=== PATIENT | male | born 1945 | race Caucasian/White ===

== ENCOUNTER 2021-03-15 03:24 | Inpatient (IN) | payer OTHER ==
[~2021-03-15] VITALS: Ht 170.2 cm; Wt 73.2 kg
--- NOTE | 2021-03-15 03:28 | NUR ---
PT BIB RA 90 FROM [facility] FOR HYPOGLYCEMIA, GIVEN GLUCAGONE ON SNF. A/O X3, NO SOB OR LABORED BREATHING, AFEBRILE. CLEAR SPEECH, COMPLETE SENTENCES.
--- NOTE | 2021-03-15 03:32 | NUR ---
DR. DAVEY AT BEDSIDE, MSE IN PROGRESS.
--- NOTE | 2021-03-15 03:33 | NUR ---
GLUCOSE 138.
--- NOTE | 2021-03-15 04:01 | NUR ---
XRAY AT BEDSIDE.
[2021-03-15 04:44] LABS: CARBON DIOXIDE 26 mmol/L (21-32); CHLORIDE 96 mmol/L (98-107); CREATININE 6.4 mg/dL (0.6-1.3); GLUCOSE 199 mg/dL (74-106); POTASSIUM 4.4 mmol/L (3.5-5.1); UREA NITROGEN, BLOOD 67 mg/dL (7-18)
[2021-03-15 04:48] LABS: HEMATOCRIT 37.1 % (36.7-47.1); MEAN CORPUSCULAR HEMOGLOBIN 31.7 uug (23.8-33.4); MEAN CORPUSCULAR VOLUME 95.7 fL (73.0-96.2); PLATELET COUNT (AUTO) 127 K/uL (152-348)
[2021-03-15] MEDS ORDERED: CHLO473M3 PO (04:48)
[2021-03-15] MEDS ORDERED: CLOP75TA33 PO (04:48)
[2021-03-15] MEDS ORDERED: ISOS20TA8 PO (04:48)
[2021-03-15] MEDS ORDERED: HYDR-3972 PO ×2 (04:48)
[2021-03-15] MEDS ORDERED: FINA5TAB11 PO (04:48)
[2021-03-15] MEDS ORDERED: PREG50CA PO (04:48)
[2021-03-15] MEDS ORDERED: AMIN30LI27 PO (04:48)
[2021-03-15] MEDS ORDERED: NIFE-34 PO (04:48)
[2021-03-15] MEDS ORDERED: BISA10SU61 RC (04:48)
[2021-03-15] MEDS ORDERED: humalog (04:48)
[2021-03-15] MEDS ORDERED: FERR325T28 PO (04:48)
[2021-03-15] MEDS ORDERED: SEVE800T8 PO (04:48)
[2021-03-15] MEDS ORDERED: POLY17PO4 PO (04:48)
[2021-03-15] MEDS ORDERED: MELA3CAP2 PO (04:48)
[2021-03-15] MEDS ORDERED: HEPA500034 SUBCUT (04:48)
[2021-03-15] MEDS ORDERED: CLOB15CR4 TP (04:48)
[2021-03-15] MEDS ORDERED: INSU100V7 SQ (04:48)
[2021-03-15] MEDS ORDERED: ACET325T53 PO (04:48)
[2021-03-15] MEDS ORDERED: VIT1TABL46 PO (04:48)
[2021-03-15] MEDS ORDERED: TAMS-3 PO (04:48)
[2021-03-15] MEDS ORDERED: SENN-261 PO (04:48)
[2021-03-15] MEDS ORDERED: ASPI81TA31 PO (04:48)
[2021-03-15] MEDS ORDERED: HYDR100T27 PO (04:48)
--- NOTE | 2021-03-15 04:55 | NUR ---
[facility] CALLED FOR PANEL, DANY MANTILLA PAGED.
[2021-03-15] MEDS: VANCOMYCIN IV 1,000 MG in IV DEXTROSE 5% 250 ML IV ONE ×2 (05:05→05:56)
[2021-03-15] MEDS: levoFLOXacin 750 MG/D5W 150 ML PIGGYBACK IV ONE ×2 (05:05→05:56)
[2021-03-15] MEDS ORDERED: levoFLOXacin 750MG/D5W 150 ML IV ONE (05:06)
[2021-03-15] MEDS ORDERED: VANCOMYCIN IV 200 ML ONE (05:07)
--- NOTE | 2021-03-15 05:50 | NUR ---
GAVE REPORT TO TEE AGUILAR.
--- NOTE | 2021-03-15 06:00 | NUR ---
Levaquin 750mg administered via IV 20G on RT AC on 03/15/21 at 0505, medication reassessment on 03/15/21 at 0556, no ASE noted. Well tolerated.
[2021-03-15 06:15] VITALS: BP 158/57
--- NOTE | 2021-03-15 06:20 | NUR ---
Pt. admitted to tele room 302 , under care of Dr. Jose Manuel Nicole Dx: PNA, hypoglycemia, ESRD Belongs List completed
[2021-03-15] MEDS ORDERED: hydrALAZINE HCL 50 MG TABLET PO PRN (06:30)
--- NOTE | 2021-03-15 06:30 | NUR ---
Received report from TEE Ro ED; patient from ED via stretcher, without any incident. Patient is awake, lying in bed, resting comfortably. A/Ox3. Primarily Ugandan speaking. Denies pain at this time. No signs of acute distress noted. Checked IV site patent and infusing well with Vanco 1gm from ED. No erythema, bleeding or infiltration noted. Placed patient's gown and tele box; SR 1degree heart block. Body assessment done. Personal belonging list checked with JUAN PABLO Rodriguez. Bed at lowest position, brakes on, siderails x3. Call light within reach. Will continue to monitor.
--- NOTE | 2021-03-15 07:30 | NUR ---
Patient is asleep, resting comfortably, in stable condition, VSS. Endorsed.
--- NOTE | 2021-03-15 08:00 | NUR ---
resting in bed, alert and oriented to self, speaks croatian, explained plan of care- needs reinforcement, safety measures initaited, pt is uncooperative most of the time, insists on what he wants, doesn't use call button for nurse, bed alarm on and close monitoring enforced. Tele SR 63 with first degree AV block
[2021-03-15] MEDS: SEVELAMER CARBONATE 800 MG TABLET PO SCH ×3 (08:36→17:11)
[2021-03-15] MEDS: PREGABALIN 50 MG CAPSULE PO SCH (08:40)
[2021-03-15] MEDS: FERROUS SULFATE 325 MG TABEC PO SCH ×2 (08:40→17:11)
[2021-03-15] MEDS: CLOPIDOGREL 75 MG TABLET PO SCH (08:40)
[2021-03-15] MEDS: ISOSORBIDE DINITRATE 20 MG TABLET PO SCH ×3 (08:41→17:11)
[2021-03-15] MEDS: NIFEdipine XL 60 MG TABSR PO SCH (08:41)
[2021-03-15] MEDS ORDERED: ASPIRIN 81 MG TAB.CHEW PO SCH (09:00)
[2021-03-15] MEDS ORDERED: HYDROCODONE/APAP 5-325MG TABLET PO PRN (09:15)
[2021-03-15] MEDS ORDERED: ONDANSETRON 4 MG/2 ML VIAL IV PRN (09:15)
[2021-03-15 11:21] VITALS: BP 141/47
--- NOTE | 2021-03-15 11:45 | NUR ---
noted change of rhythm, HR 45, ordered EKG and informed Dr Renee, at this time, pt asymptomatic, BP 141/47, denies of chest pain and no shortness of breath, on room air with sat of 95%
[2021-03-15 15:06] VITALS: BP 151/46
--- NOTE | 2021-03-15 16:00 | NUR ---
Dr Edwards here and informed of junctional rhythm and Dr Tripp here and saw pt- both MDs spoke to daughter Claudette
[2021-03-15] MEDS ORDERED: DEXTROSE 50% 50 ML DISP.SYRIN IV PRN (16:15)
[2021-03-15] MEDS: BLOOD SUGAR DIAGNOSTIC 1 EACH STRIP VI SCH ×2 (17:10→20:50)
[2021-03-15] MEDS: INSULIN REGULAR, HUMAN 300 UNIT/3 ML VIAL SQ PRN (17:14)
--- NOTE | 2021-03-15 18:25 | NUR ---
resting in bed, still in junctional rhythm 46, dinner taken, all needs attended and dmet, call light and bed alarm on, no distress noted
[2021-03-15] MEDS ORDERED: ISOS10TA2 PO (19:55)
[2021-03-15 20:00] VITALS: BP 105/39
[2021-03-15] MEDS ORDERED: CHOL200013 PO (20:08)
--- NOTE | 2021-03-15 20:30 | NUR ---
Received patient from TEE Haro. Patient is awake, sitting on bed; A/Ox3; primarily welsh speaking; denies pain at this time. No signs of acute distress noted. Checked IV site patent and flushed. No erythema, bleeding or infiltration noted. Bed at lowest position, brakes on, bed alarm on, siderails x3. Call light within reach. Will continue to monitor.
[2021-03-15] MEDS: TAMSULOSIN HCL 0.4 MG CAP.SR.24H PO SCH (20:39)
[2021-03-15] MEDS: FINASTERIDE 5 MG TABLET PO SCH (20:40)
[2021-03-15] MEDS: DOCUSATE SODIUM 100 MG CAPSULE PO SCH (20:41)
[2021-03-15] MEDS: ISOSORBIDE DINITRATE 10 MG TABLET PO SCH (20:41)
[2021-03-15] MEDS ORDERED: DOCUSATE SODIUM 250 MG CAPSULE PO SCH (21:00)
[2021-03-15] MEDS: hydrALAZINE HCL 50 MG TABLET PO SCH (21:58)
[2021-03-16] VITALS: BP 155/50
--- NOTE | 2021-03-16 01:40 | NUR ---
Resting comfortably. No significant change of condition noted. Will continue to monitor.
[2021-03-16 04:00] VITALS: BP_SYST 115; BP_SYST 116; BP_DIAS 35; BP_DIAS 75
[2021-03-16] MEDS: hydrALAZINE HCL 50 MG TABLET PO SCH ×3 (06:00→21:06)
[2021-03-16] MEDS: PANTOPRAZOLE SODIUM 40 MG TABLET.DR PO SCH (06:04)
--- NOTE | 2021-03-16 06:10 | NUR ---
BP 174/63, HR 57, Hydralazine hold. Patient is for HD today.
--- NOTE | 2021-03-16 07:00 | NUR ---
Patient is awake, lying in bed, in stable condition; on RA. No acute distress noted. Addendum: 03/16/21 at 0705 by Elise Solis RN BS [id number]. Will endorsed to AM shift TEE.
[2021-03-16] MEDS: BLOOD SUGAR DIAGNOSTIC 1 EACH STRIP VI SCH ×4 (07:04→20:22)
[2021-03-16 08:31] LABS: HEMATOCRIT 30.3 % (36.7-47.1); MEAN CORPUSCULAR HEMOGLOBIN 32.4 uug (23.8-33.4); MEAN CORPUSCULAR VOLUME 94.9 fL (73.0-96.2); PLATELET COUNT (AUTO) 109 K/uL (152-348)
[2021-03-16 08:58] LABS: THYROID STIMULATING HORMONE 3.843 mIU/mL (0.358-3.740)
[2021-03-16] MEDS: ISOSORBIDE DINITRATE 10 MG TABLET PO SCH ×3 (09:00→18:03)
[2021-03-16] MEDS: NIFEdipine XL 60 MG TABSR PO SCH (09:00)
[2021-03-16 09:01] LABS: ALANINE AMINOTRANSFERASE 34 U/L (16-63); ALKALINE PHOSPHATASE 116 U/L (50-136); ASPARTATE AMINOTRANSFERASE 29 U/L (15-37); BILIRUBIN,TOTAL 0.5 mg/dL (0.2-1.0); CARBON DIOXIDE 24 mmol/L (21-32); CHLORIDE 94 mmol/L (98-107); GLUCOSE 228 mg/dL (74-106); MAGNESIUM 2.2 mg/dL (1.8-2.4); PHOSPHOROUS 5.7 mg/dL (2.5-4.9); TOTAL PROTEIN, SERUM 6.5 g/dL (6.4-8.2)
[2021-03-16] MEDS: CHOLECALCIFEROL 1,000 UNIT TABLET PO SCH (09:03)
[2021-03-16] MEDS: ASPIRIN EC 81 MG TABLET.DR PO SCH (09:04)
[2021-03-16] MEDS: PREGABALIN 50 MG CAPSULE PO SCH (09:04)
[2021-03-16] MEDS: FERROUS SULFATE 325 MG TABEC PO SCH ×2 (09:04→18:03)
[2021-03-16] MEDS: SEVELAMER CARBONATE 800 MG TABLET PO SCH ×3 (09:04→18:03)
[2021-03-16] MEDS: CLOPIDOGREL 75 MG TABLET PO SCH (09:04)
[2021-03-16] MEDS: INSULIN REGULAR, HUMAN 300 UNIT/3 ML VIAL SQ PRN ×3 (09:13→20:23)
[2021-03-16 09:40] LABS: CHOLESTEROL 137 mg/dL (<200); HDL CHOLESTEROL 95 mg/dL (40-60); TRIGLYCERIDES 51 MG/DL (30-150); UREA NITROGEN, BLOOD 81 mg/dL (7-18)
--- NOTE | 2021-03-16 10:29 | NUR ---
dialysis finished, per dialysis nurse 3l removed, v/s are bp: 159/79 p: 74 rr: 19 t: 98.1.
[2021-03-16 11:30] VITALS: BP 160/70
--- NOTE | 2021-03-16 11:53 | NUR ---
new order from dr. walton to place patient npo on 03/17/21 at 0000 for pacemaker placement on 03/17. noted and carried out.
[2021-03-16] MEDS ORDERED: VANCOMYCIN IV 1,000 MG in IV DEXTROSE 5% 250 ML IV ONE (14:00)
--- NOTE | 2021-03-16 14:30 | NUR ---
Returned call to re: pacemaker procedure scheduled for 03/17/21 at 10am, message was left, pending call back
--- NOTE | 2021-03-16 14:45 | NUR ---
patient refused IV vancomycin x3, explained risk and benefits. Dr. Causey called to encourage patient to accept allow me to administer vancomycin, per patient "i said no."
--- NOTE | 2021-03-16 16:00 | NUR ---
consent signed for pacemaker placement by patient, patient scheduled for pacemaker insertion at 10a on 03/[address] nuñez. called kay dtr and made aware all questions answered.
[2021-03-16 16:04] VITALS: BP 146/40
--- NOTE | 2021-03-16 16:39 | NUR ---
patient refused blood sugar check x3, explained risk and benefit
--- NOTE | 2021-03-16 19:30 | NUR ---
RECEIVED PT AWAKE, ALERT AND ORIENTEDX4. PT IN NO ACUTE DISTRESS. IV INTACT. PT ADVISED TO CALL NURSE STAFF IF HE WILL GO TO BATHROOM . BED ALARM ON FOR SAFETY. SAFETY AND COMFORT PROVIDED. WILL CONTINUE TO MONITOR.
[2021-03-16 20:00] VITALS: BP 150/53
[2021-03-16] MEDS: FINASTERIDE 5 MG TABLET PO SCH (20:14)
[2021-03-16] MEDS: TAMSULOSIN HCL 0.4 MG CAP.SR.24H PO SCH (20:14)
[2021-03-16] MEDS: DOCUSATE SODIUM 100 MG CAPSULE PO SCH (20:14)
[2021-03-16] MEDS ORDERED: INSULIN GLARGINE,HUM 300 UNITS/3 ML CARTRIDGE SQ SCH (21:00)
--- NOTE | 2021-03-16 21:30 | NUR ---
Dr Mychal Rice ordered to disregard queud order by Jose Manuel Nicole Airline Managerial Supervisor. Pt daughter at bedside. Pt stable.
[2021-03-17] VITALS (7 sets, daily range): BP systolic 138–178; BP diastolic 51–73
[2021-03-17 03:55] LABS: *BILIRUBIN,URIN NEGATIVE (NEGATIVE); *CLARITY,URINE CLEAR (CLEAR); *COLOR,URINE YELLOW (YELLOW); *KETONES,URINE NEGATIVE (NEGATIVE); *UROBILINOGEN,URINE 0.2 E.U./dl (NORMAL); LEUKOCYTE ESTERASE ,URINE NEGATIVE (NEGATIVE); NITRITE, URINE NEGATIVE (NEGATIVE); PH,URINE 8.5 (5.0-8.0); UGLUCOSE NEGATIVE (NEGATIVE)
[2021-03-17 04:10] LABS: *BLOOD, URINE TRACE INTACT (NEGATIVE); BACTERIA,URINE NONE SEEN /HPF (NONE SEEN); SQUAMOUS EPITHELIAL CELL,UR FEW /HPF (NONE SEEN); WBC,URINE 0-3 /HPF (0-3)
[2021-03-17] MEDS ORDERED: levoFLOXacin 500 MG/D5W 500 MG in PREMIXED 1 EACH IV SCH (05:00)
--- NOTE | 2021-03-17 05:57 | NUR ---
PT FELT ITCHINESS ON THE IV SITE AND OBSERVED REDNESS. STOPPED IV RUNNING. NOTIFY SEMICONDUCTOR TECHNICIAN. PT VITAL SIGNS STABLE . PT IN NO ACUTE DISTRESS. WILL CONTINUE TO MONITOR. NOTIFY DR. GABRIEL.
[2021-03-17] MEDS: hydrALAZINE HCL 50 MG TABLET PO SCH ×3 (06:00→22:22)
[2021-03-17 06:06] LABS: HEPATITIS B SURFACE AG Negative (Negative)
--- NOTE | 2021-03-17 06:10 | NUR ---
CALLED [facility] TO [facility]. WAITING FOR CALLBACK.
--- NOTE | 2021-03-17 06:15 | NUR ---
DR. GABRIEL ORDERED CEFEPIME 2MG BUT PT HAS ALLERGIC REACTION TO PENICILLIN. AWAITING FOR CALLBACK .
[2021-03-17] MEDS: PANTOPRAZOLE SODIUM 40 MG TABLET.DR PO SCH (06:17)
[2021-03-17] MEDS: BLOOD SUGAR DIAGNOSTIC 1 EACH STRIP VI SCH ×4 (06:52→20:25)
--- NOTE | 2021-03-17 06:56 | NUR ---
PT BLOOD SUGAR IS 42. PT IN NO ACUTE DISTRESS. NO SIGN AND SYMPTOMS OF HYPOGLYCEMIC REACTION. INSULIN PROTOCOL INITIATED.WILL CONTINUE TO MONITOR.
[2021-03-17 07:26] LABS: HEMATOCRIT 33.1 % (36.7-47.1); MEAN CORPUSCULAR HEMOGLOBIN 32.7 uug (23.8-33.4); MEAN CORPUSCULAR VOLUME 95.2 fL (73.0-96.2); PLATELET COUNT (AUTO) 125 K/uL (152-348)
--- NOTE | 2021-03-17 07:35 | NUR ---
NOTIFY RUBY NG. RECENT BLOOD SUGAR 109. PT IN NO ACUTE DISTRESS. PT STABLE. ENDORSE REGARDING THE CEFEPIME MEDICATION TO ANNETTE OLIVEIRA.
[2021-03-17 07:43] LABS: CARBON DIOXIDE 27 mmol/L (21-32); CHLORIDE 98 mmol/L (98-107); CREATININE 5.9 mg/dL (0.6-1.3); MAGNESIUM 2.1 mg/dL (1.8-2.4); PHOSPHOROUS 4.3 mg/dL (2.5-4.9); UREA NITROGEN, BLOOD 48 mg/dL (7-18)
[2021-03-17 07:58] LABS: GLUCOSE 46 mg/dL (74-106)
--- NOTE | 2021-03-17 08:03 | NUR ---
spoke with Dr. baez regarding new cefepime order and patient with allergy to penicillin, new order for meropenem mg iv q 12 noted and carried out.
--- NOTE | 2021-03-17 08:06 | NUR ---
Dr. baez ok with meropenem order explained patients allergy to pcn.
--- NOTE | 2021-03-17 08:10 | NUR ---
critical lab value of glucose [address] baez from morning labs, current blood sugar 109 at this time. patient is stable. v/s wnl. no s/s hypoglycemia noted.
[2021-03-17] MEDS: SEVELAMER CARBONATE 800 MG TABLET PO SCH ×3 (08:48→17:25)
[2021-03-17] MEDS: PREGABALIN 50 MG CAPSULE PO SCH (08:49)
[2021-03-17] MEDS: CHOLECALCIFEROL 1,000 UNIT TABLET PO SCH (08:49)
[2021-03-17] MEDS: FERROUS SULFATE 325 MG TABEC PO SCH ×2 (09:08→17:25)
[2021-03-17] MEDS: NIFEdipine XL 60 MG TABSR PO SCH (09:09)
[2021-03-17] MEDS: CLOPIDOGREL 75 MG TABLET PO SCH (09:09)
[2021-03-17] MEDS: ASPIRIN EC 81 MG TABLET.DR PO SCH (09:09)
[2021-03-17] MEDS: ISOSORBIDE DINITRATE 10 MG TABLET PO SCH ×3 (09:10→17:26)
[2021-03-17] MEDS ORDERED: MEROPENEM 500 MG in IV NORMAL SALINE 50 ML IV SCH (10:00)
--- NOTE | 2021-03-17 10:44 | NUR ---
received call from surgery patients pacemaker placement rescheduled to 03/18/21 at 0800. patient to be npo on 03/18/21 at 12 midnight.
--- NOTE | 2021-03-17 10:44 | NUR ---
Iv merrem starting no signs of adverse reaction at this time.
[2021-03-17] MEDS: INSULIN REGULAR, HUMAN 300 UNIT/3 ML VIAL SQ PRN ×3 (11:42→20:24)
[2021-03-17] MEDS ORDERED: CEFEPIME HCL 1 G in IV DEXTROSE 5% 50 ML IV SCH (14:00)
[2021-03-17] MEDS: CEFEPIME HCL 1 G in IV DEXTROSE 5% 50 ML IV SCH (14:05)
--- NOTE | 2021-03-17 19:30 | NUR ---
RECEIVED PT AWAKE, ALERT AND ORIENTEDX4. PT IN NO ACUTE DISTRESS. IV INTACT. PT TOLERATED CEFEPIME MEDICATION PER DAY SHIFT NURSE. NO ALLERGIC REACTION ON THE MEDICATION. SAFETY AND COMFORT PROVIDED. WILL CONTINUE TO MONITOR.
[2021-03-17] MEDS: FINASTERIDE 5 MG TABLET PO SCH (20:09)
[2021-03-17] MEDS: DOCUSATE SODIUM 100 MG CAPSULE PO SCH (20:09)
[2021-03-17] MEDS: TAMSULOSIN HCL 0.4 MG CAP.SR.24H PO SCH (20:10)
[2021-03-17] MEDS: ACETAMINOPHEN 325 MG TABLET PO PRN (22:22)
[2021-03-18] VITALS: BP 158/50
[2021-03-18] MEDS: hydrALAZINE HCL 50 MG TABLET PO SCH ×3 (06:00→21:23)
[2021-03-18] MEDS: PANTOPRAZOLE SODIUM 40 MG TABLET.DR PO SCH (06:06)
[2021-03-18 06:20] LABS: HEMATOCRIT 33.8 % (36.7-47.1); MEAN CORPUSCULAR HEMOGLOBIN 32.3 uug (23.8-33.4); MEAN CORPUSCULAR VOLUME 95.7 fL (73.0-96.2); PLATELET COUNT (AUTO) 137 K/uL (152-348)
[2021-03-18 06:29] LABS: ALANINE AMINOTRANSFERASE 14 U/L (16-63); ALKALINE PHOSPHATASE 107 U/L (50-136); ASPARTATE AMINOTRANSFERASE 15 U/L (15-37); BILIRUBIN,TOTAL 0.5 mg/dL (0.2-1.0); CARBON DIOXIDE 24 mmol/L (21-32); CHLORIDE 95 mmol/L (98-107); CREATININE 6.7 mg/dL (0.6-1.3); GLUCOSE 188 mg/dL (74-106); MAGNESIUM 2.1 mg/dL (1.8-2.4); PHOSPHOROUS 5.5 mg/dL (2.5-4.9); TOTAL PROTEIN, SERUM 6.4 g/dL (6.4-8.2); UREA NITROGEN, BLOOD 62 mg/dL (7-18)
[2021-03-18] MEDS: INSULIN REGULAR, HUMAN 300 UNIT/3 ML VIAL SQ PRN ×3 (06:31→21:22)
[2021-03-18] MEDS: BLOOD SUGAR DIAGNOSTIC 1 EACH STRIP VI SCH ×4 (06:31→21:24)
--- NOTE | 2021-03-18 06:32 | NUR ---
PT REFUSED VITAL SIGNS.PT REFUSED INSULIN COVERAGE FOR 184 BLOOD SUGAR. PT IN NO ACUTE DISTRESS.PT STABLE. PT ON ROOM AIR. PT ON SINUS RHYTHM ON THE MONITOR. EDUCATE PT REGARDING THE IMPORTANCE OF BED ALARM. PT ANNOYED REGARDING THE BED ALARM BEEPING. PT WANTS TO TURNED IT OFF. PRESCRIBED MEDICATION GIVEN AND PT TOLERATED IT WELL. PT GIVEN NORCO AT 2020H FOR PAIN AND TYLENOL 650 MG AT 2222H.PT TOLERATED IT WELL.PT FELT BETTER AFTER THE NORCO AND TYLENOL GIVEN. SAFETY AND COMFORT PROVIDED. IV INTACT.PT RUDE TO STAFF. WILL ENDORSE TO INCOMING NURSE FOR CONTINUITY OF CARE.
[2021-03-18] MEDS: SEVELAMER CARBONATE 800 MG TABLET PO SCH ×4 (08:00→18:07)
[2021-03-18] MEDS: FERROUS SULFATE 325 MG TABEC PO SCH ×3 (08:39→16:45)
[2021-03-18] MEDS: ASPIRIN EC 81 MG TABLET.DR PO SCH ×2 (08:39→10:13)
[2021-03-18] MEDS: ISOSORBIDE DINITRATE 10 MG TABLET PO SCH ×4 (08:39→16:45)
[2021-03-18] MEDS: CHOLECALCIFEROL 1,000 UNIT TABLET PO SCH ×2 (08:40→10:12)
[2021-03-18] MEDS: PREGABALIN 50 MG CAPSULE PO SCH ×2 (08:40→10:12)
[2021-03-18] MEDS: CLOPIDOGREL 75 MG TABLET PO SCH ×2 (08:40→10:13)
[2021-03-18] MEDS: NIFEdipine XL 60 MG TABSR PO SCH ×2 (08:40→10:12)
[2021-03-18] MEDS ORDERED: BUPIVACAINE PF 0.5% 30 ML VIAL ONE (08:58)
[2021-03-18] MEDS ORDERED: LIDOCAINE HCL 2% 20 ML VIAL ONE (08:58)
[2021-03-18] MEDS ORDERED: IOPAMIDOL 15 ML VIAL IT ONE (08:59)
[2021-03-18 11:30] VITALS: BP 164/66
--- NOTE | 2021-03-18 11:31 | NUR ---
pacemaker procedure postponed to tomorrow, due to patient had breakfast by mistake, surgeon is aware, Patient also noted bradycardia, however asymptomatic, verbally responsive, no sob, resp even nonlabored, tolerating ambulation with contact guard, no distress noted at this time, continue to monitor closely Addendum: 03/18/21 at 1509 by RAMEZ FONTANA RN, RN private eye made aware as well
[2021-03-18] MEDS: VALSARTAN 80 MG TABLET PO SCH ×2 (12:22→21:26)
--- NOTE | 2021-03-18 15:09 | NUR ---
800ml output from hemodialysis, vitals bp 156/66, pulse 66
[2021-03-18] MEDS: CEFEPIME HCL 1 G in IV DEXTROSE 5% 50 ML IV SCH (15:13)
[2021-03-18 16:05] VITALS: BP 169/66
--- NOTE | 2021-03-18 17:50 | NUR ---
spoke to dietary staff name Shivani make sure not to send breakfast tray for patient tomorrow morning on 03/19/21. NPO order is in place in the [facility], NPO sign placed in patient room, spoke to patient daughter and explain to patient NPO from midnight for pacemaker insertion tomorrow on 03/19/21. patient verbalized understanding of it. will endorse maintenance technician 2nd shift accordingly as well. inservice given and educated nurse banking assistant as well, keep patient NPO from midnight and endorse tonext shift APPRISE COUNSELOR too. APPRISE COUNSELOR verbalized the understanding of it.
--- NOTE | 2021-03-18 17:56 | NUR ---
patient is alert, oriented x3, no sob, resp even nonlabored,skin warm and dry to touch, ambulatory, no distress noted.
--- NOTE | 2021-03-18 18:05 | NUR ---
NPO FROM MIDNIGHT
[2021-03-18 20:00] VITALS: BP 106/58
--- NOTE | 2021-03-18 21:00 | NUR ---
PT AMBULATING IN THE HALLWAY WITH DAUGHTER; PT AWARE TO BE NPO FR MIDNIGHT
[2021-03-18] MEDS: TAMSULOSIN HCL 0.4 MG CAP.SR.24H PO SCH (21:23)
[2021-03-18] MEDS: DOCUSATE SODIUM 100 MG CAPSULE PO SCH (21:24)
[2021-03-18] MEDS: FINASTERIDE 5 MG TABLET PO SCH (21:24)
[2021-03-19] VITALS: BP 139/47
[2021-03-19] MEDS ORDERED: DEXTROSE 50% 50 ML DISP.SYRIN IV PRN ×2 (00:15→22:45)
[2021-03-19 04:00] VITALS: BP 171/62
[2021-03-19] MEDS: hydrALAZINE HCL 50 MG TABLET PO SCH ×3 (05:12→22:34)
[2021-03-19] MEDS: BLOOD SUGAR DIAGNOSTIC 1 EACH STRIP VI SCH ×4 (05:17→23:13)
--- NOTE | 2021-03-19 05:17 | NUR ---
BP 171/62; AM DOSE HYDRALAZINE GIVEN WITH SMALL SIP OF WATER
[2021-03-19] MEDS ORDERED: levoFLOXacin 500 MG/D5W 500 MG in PREMIXED 1 EACH IV SCH (06:00)
[2021-03-19] MEDS: PANTOPRAZOLE SODIUM 40 MG TABLET.DR PO SCH (06:34)
[2021-03-19] MEDS ORDERED: LIDOCAINE HCL 2% 20 ML VIAL ONE (07:27)
[2021-03-19] MEDS ORDERED: IOPAMIDOL 15 ML VIAL IT ONE (07:28)
[2021-03-19] MEDS ORDERED: BUPIVACAINE PF 0.5% 30 ML VIAL ONE (07:28)
--- NOTE | 2021-03-19 07:30 | NUR ---
OR nurse here to take pt per bed, awake alert, tele SR with 1st degree av block, denies of pain, Saudi Arabian speaking
[2021-03-19] MEDS ORDERED: LIDOCAINE-MPF 2% 5 ML VIAL IJ ONE (08:00)
[2021-03-19] MEDS ORDERED: PROPOFOL 200 MG/20 ML BOTTLE IV ONE (08:00)
[2021-03-19] MEDS ORDERED: CLINDAMYCIN PHOSPHATE 600 MG/4 ML VIAL ONE (08:07)
[2021-03-19] MEDS ORDERED: VALSARTAN 80 MG TABLET PO SCH (09:00)
--- NOTE | 2021-03-19 09:00 | NUR ---
unable to do pacemaker insertion- see notes of surgeon, pt awake, reordered diet and meds given- tele remains SR with 1st degree av block, safety measures maintained
[2021-03-19] MEDS: SEVELAMER CARBONATE 800 MG TABLET PO SCH ×3 (09:12→17:19)
[2021-03-19] MEDS: FERROUS SULFATE 325 MG TABEC PO SCH ×2 (09:12→17:10)
[2021-03-19] MEDS: PREGABALIN 50 MG CAPSULE PO SCH (09:12)
[2021-03-19] MEDS: CLOPIDOGREL 75 MG TABLET PO SCH (09:13)
[2021-03-19] MEDS: CHOLECALCIFEROL 1,000 UNIT TABLET PO SCH (09:13)
[2021-03-19] MEDS: ASPIRIN EC 81 MG TABLET.DR PO SCH (09:14)
[2021-03-19] MEDS: VALSARTAN 160 MG TABLET PO SCH ×2 (09:15→20:34)
[2021-03-19] MEDS: ISOSORBIDE DINITRATE 10 MG TABLET PO SCH ×3 (09:15→17:16)
[2021-03-19] MEDS: NIFEdipine XL 60 MG TABSR PO SCH (09:16)
--- NOTE | 2021-03-19 10:30 | NUR ---
daughter Claudette called and updated on condition
[2021-03-19 12:00] VITALS: BP 157/65
[2021-03-19] MEDS: INSULIN REGULAR, HUMAN 300 UNIT/3 ML VIAL SQ PRN ×3 (12:15→23:14)
--- NOTE | 2021-03-19 13:00 | NUR ---
ambulated with assist to BR- tolerated well.
[2021-03-19] MEDS: CEFEPIME HCL 1 G in IV DEXTROSE 5% 50 ML IV SCH (14:20)
[2021-03-19 16:00] VITALS: BP_SYST 127; BP_SYST 148; BP_DIAS 48; BP_DIAS 71
--- NOTE | 2021-03-19 18:51 | NUR ---
resting in bed, no distress noted, all needs attended and met, call light within reach
--- NOTE | 2021-03-19 19:10 | NUR ---
awake, alert, sitting up in bed, will continue to monitor. call lights within reach, bed alarm on.
[2021-03-19 20:03] VITALS: BP 147/56
[2021-03-19] MEDS: FINASTERIDE 5 MG TABLET PO SCH (20:33)
[2021-03-19] MEDS: TAMSULOSIN HCL 0.4 MG CAP.SR.24H PO SCH (20:34)
[2021-03-19] MEDS: DOCUSATE SODIUM 100 MG CAPSULE PO SCH (20:35)
[2021-03-20] VITALS: BP 165/64
--- NOTE | 2021-03-20 00:53 | NUR ---
bp: 170/58 after giving hydralazine 100 mg, notified Dr. Devlin. Per MD's order, give 0.1 mg Clonidine one time.
[2021-03-20] MEDS ORDERED: CLONIDINE HCL 0.1 MG TABLET PO ONE (01:15)
--- NOTE | 2021-03-20 01:30 | NUR ---
reassess bp: 141/81 hr 64
[2021-03-20 04:03] VITALS: BP 121/45
[2021-03-20] MEDS: PANTOPRAZOLE SODIUM 40 MG TABLET.DR PO SCH (06:00)
[2021-03-20] MEDS: hydrALAZINE HCL 50 MG TABLET PO SCH ×3 (06:08→21:30)
--- NOTE | 2021-03-20 06:43 | NUR ---
Patient slept on and off, voided freely via urinal and BRP and walker, no acute distress noted. Patient compliant with medication. Reassessed BP: 151/40 HR 53 Safety measures maintained. Call light within reach, bed alarm on and bed locked on lowest position. Will endorse to am shift.
[2021-03-20 07:11] LABS: HEMATOCRIT 31.3 % (36.7-47.1); MEAN CORPUSCULAR HEMOGLOBIN 32.5 uug (23.8-33.4); MEAN CORPUSCULAR VOLUME 94.5 fL (73.0-96.2); PLATELET COUNT (AUTO) 130 K/uL (152-348)
[2021-03-20 07:34] LABS: ALANINE AMINOTRANSFERASE 19 U/L (16-63); ALKALINE PHOSPHATASE 106 U/L (50-136); ASPARTATE AMINOTRANSFERASE 14 U/L (15-37); BILIRUBIN,TOTAL 0.4 mg/dL (0.2-1.0); CARBON DIOXIDE 21 mmol/L (21-32); CHLORIDE 95 mmol/L (98-107); GLUCOSE 168 mg/dL (74-106); MAGNESIUM 2.2 mg/dL (1.8-2.4); PHOSPHOROUS 6.7 mg/dL (2.5-4.9); POTASSIUM 4.9 mmol/L (3.5-5.1); TOTAL PROTEIN, SERUM 6.5 g/dL (6.4-8.2); UREA NITROGEN, BLOOD 71 mg/dL (7-18)
[2021-03-20 07:56] LABS: CREATININE 7.6 mg/dL (0.6-1.3)
--- NOTE | 2021-03-20 08:00 | NUR ---
Pt Serbian speaking but able to make his needs known. PT denies any c/o pain. PT ambulate to bathroom with SBA using FWW. Call light is within reach.
[2021-03-20] MEDS: SEVELAMER CARBONATE 800 MG TABLET PO SCH ×3 (08:25→17:36)
[2021-03-20] MEDS: ASPIRIN EC 81 MG TABLET.DR PO SCH (08:26)
[2021-03-20] MEDS: CLOPIDOGREL 75 MG TABLET PO SCH (08:26)
[2021-03-20] MEDS: FERROUS SULFATE 325 MG TABEC PO SCH ×2 (08:26→17:35)
[2021-03-20] MEDS: CHOLECALCIFEROL 1,000 UNIT TABLET PO SCH (08:26)
[2021-03-20] MEDS: PREGABALIN 50 MG CAPSULE PO SCH (08:26)
[2021-03-20] MEDS: VALSARTAN 160 MG TABLET PO SCH ×2 (08:34→20:50)
[2021-03-20] MEDS: ISOSORBIDE DINITRATE 10 MG TABLET PO SCH ×3 (08:34→17:35)
[2021-03-20] MEDS: NIFEdipine XL 60 MG TABSR PO SCH (08:34)
[2021-03-20] MEDS: BLOOD SUGAR DIAGNOSTIC 1 EACH STRIP VI SCH ×4 (08:35→21:29)
[2021-03-20] MEDS: INSULIN REGULAR, HUMAN 300 UNIT/3 ML VIAL SQ PRN ×4 (08:35→21:26)
[2021-03-20 12:00] VITALS: BP 145/46
--- NOTE | 2021-03-20 14:00 | NUR ---
Pt had question about his medications. Used RN Hydraulic Bull Riveter Operator to explain purpose of medication and side effects. Pt verbalized understanding.
[2021-03-20 16:00] VITALS: BP 120/61
--- NOTE | 2021-03-20 18:19 | NUR ---
Spoke with daughter Claudette voicing that she doesn't like the place where his dad came from ([facility]). Gave [facility] number for [place] to be contacted by the daughter for possible different placement for patient.
--- NOTE | 2021-03-20 19:30 | NUR ---
RECEIVED PT AWAKE, ALERT AND ORIENTEDX3. PT IN NO ACUTE DISTRESS. PT IV INTACT. PT INSISTING HE HAS MEDICATION FOR ITCHINESS BUT THERE'S NONE. SAFETY AND COMFORT PROVIDED. WILL CONTINUE TO MONITOR.
[2021-03-20 20:03] VITALS: BP 165/53
[2021-03-20] MEDS: FINASTERIDE 5 MG TABLET PO SCH (20:50)
[2021-03-20] MEDS: TAMSULOSIN HCL 0.4 MG CAP.SR.24H PO SCH (20:50)
[2021-03-20] MEDS: DOCUSATE SODIUM 100 MG CAPSULE PO SCH (20:50)
[2021-03-20] MEDS: ACETAMINOPHEN 325 MG TABLET PO PRN (20:51)
[2021-03-21] VITALS: BP 141/59
[2021-03-21 04:03] VITALS: BP 168/69
[2021-03-21] MEDS: hydrALAZINE HCL 50 MG TABLET PO SCH ×3 (05:47→21:55)
[2021-03-21] MEDS: PANTOPRAZOLE SODIUM 40 MG TABLET.DR PO SCH (06:02)
--- NOTE | 2021-03-21 06:11 | NUR ---
PT SLEPT INTERMITTENTLY. PT GIVEN TYLENOL 650MG PRN AT 2050H PER PT REQUEST FOR GENERALIZED PAIN. PT INSISTING HE HAS LOTION FOR ITCHINESS. PRESCRIBED MEDICATION GIVEN AND PT TOLERATED IT WELL. PT ADVISED NOT TO CLOSE AND BARRICADE THE DOOR AND WE NEED THE BED ALARM FOR HIS SAFETY. PT ON SINUS RHYTHM.PT BLOOD SUGAR WAS 148. PT IN NO ACUTE DISTRESS. PT STABLE.SAFETY AND COMFORT PROVIDED. WILL ENDORSE TO INCOMING NURSE FOR CONTINUITY OF CARE.
[2021-03-21] MEDS: BLOOD SUGAR DIAGNOSTIC 1 EACH STRIP VI SCH ×4 (06:33→20:59)
--- NOTE | 2021-03-21 08:00 | NUR ---
Pt is in no acute distress. Call light is within. Pt denies any c/o pain. Instructed pt to stay bedrest secondary to his heart condition of slowing down. Communicated with pt through an RN luxembourger speaking. PT non compliant and wants to continue to move around his room to the bathroom.
[2021-03-21] MEDS: CHOLECALCIFEROL 1,000 UNIT TABLET PO SCH (08:13)
[2021-03-21] MEDS: INSULIN REGULAR, HUMAN 300 UNIT/3 ML VIAL SQ PRN ×3 (08:14→21:00)
[2021-03-21] MEDS: ASPIRIN EC 81 MG TABLET.DR PO SCH (08:16)
[2021-03-21] MEDS: PREGABALIN 50 MG CAPSULE PO SCH (08:16)
[2021-03-21] MEDS: FERROUS SULFATE 325 MG TABEC PO SCH ×2 (08:16→16:32)
[2021-03-21] MEDS: SEVELAMER CARBONATE 800 MG TABLET PO SCH ×3 (08:17→16:41)
[2021-03-21] MEDS: CLOPIDOGREL 75 MG TABLET PO SCH (08:18)
[2021-03-21] MEDS: NIFEdipine XL 60 MG TABSR PO SCH ×2 (08:20→10:17)
[2021-03-21] MEDS: ISOSORBIDE DINITRATE 10 MG TABLET PO SCH ×4 (08:21→16:41)
[2021-03-21] MEDS: VALSARTAN 160 MG TABLET PO SCH ×3 (08:21→20:59)
--- NOTE | 2021-03-21 08:45 | NUR ---
Called pt's daughter to talk with patient re staying in bed an limit his walking secondary to pt has poor balance and his lei heart rate s@ 50s 1 deg av block.
--- NOTE | 2021-03-21 09:15 | NUR ---
Notified and showed. DR Edwards of strips of possible complete heart block picked up by the environmental monitoring technician. No new order received.
--- NOTE | 2021-03-21 09:45 | NUR ---
held b/o meds secondary to HD to be done today.
[2021-03-21] MEDS: MINOXIDIL 2.5 MG TABLET PO SCH ×2 (10:12→20:59)
[2021-03-21 12:10] VITALS: BP 130/85
[2021-03-21 16:00] VITALS: BP 122/50
--- NOTE | 2021-03-21 18:00 | NUR ---
held b/p meds secondary to pt going to have hd done soon eta of 10 mins.
--- NOTE | 2021-03-21 18:15 | NUR ---
Notified DR Tripp of [facility] result. No new order received.
--- NOTE | 2021-03-21 18:46 | NUR ---
pt having HD. HD nurse at bedside.
--- NOTE | 2021-03-21 20:00 | NUR ---
Received patient lying in bed. AOx2, Emirati speaking only. On going dialysis at this time. In no apparent distress. No signs or symptoms of pain or SOB. O2 sat at 96% on RA. IV site on right AC intact and patent. Dialysis site on right chest area. SR with 1st degree AV block on tele with HR of 60/min. Needs assessed and attended to. Safety measure initiated and call werner within reached.
[2021-03-21 20:05] VITALS: BP 158/69
[2021-03-21] MEDS: DOCUSATE SODIUM 100 MG CAPSULE PO SCH (20:59)
[2021-03-21] MEDS: FINASTERIDE 5 MG TABLET PO SCH (20:59)
[2021-03-21] MEDS: TAMSULOSIN HCL 0.4 MG CAP.SR.24H PO SCH (20:59)
--- NOTE | 2021-03-21 22:46 | NUR ---
Telephone call to [facility] spoke to TEE Burnham and gave report regarding patient. Anh DAI for transport 1-1:30am.
[2021-03-22] VITALS: BP 150/53
--- NOTE | 2021-03-22 02:25 | NUR ---
Patient transferred to [facility] room 505, admitting Ottoniel Sheets. Picked up by [id number] via gurney accompanied by 2 paramedics. Patient AAOx2-3. In no acute distress. VS WNL. All belongings with patient. Telephone call to patient daughter Claudette, no answer, left message on voicemail and informed of transfer and instructed to call back for any questions.
== END 2021-03-22 02:25 | disposition short-term general hospital (02) | DRG 871 ==
LOC: ER 03:24 → TELE3 05:57
PROVIDERS: ADMIT Internal Medicine; ATTEND Internal Medicine
PROC: 5A1D70Z Performance of Urinary Filtration, Intermittent, Less than 6 Hours Per Day (ICD-10-PCS; principal; 2021-03-16)
DX: A41.9 Sepsis, unspecified organism (principal); N18.6 End stage renal disease; I50.33 Acute on chronic diastolic (congestive) heart failure; J69.0 Pneumonitis due to inhalation of food and vomit; G92.8 Other toxic encephalopathy; I13.2 Hypertensive heart and chronic kidney disease with heart failure and with stage 5 chronic kidney disease, or end stage renal disease; D68.59 Other primary thrombophilia; E87.1 Hypo-osmolality and hyponatremia; E11.22 Type 2 diabetes mellitus with diabetic chronic kidney disease; Z99.2 Dependence on renal dialysis; Z79.4 Long term (current) use of insulin; E11.649 Type 2 diabetes mellitus with hypoglycemia without coma; D63.8 Anemia in other chronic diseases classified elsewhere; D69.6 Thrombocytopenia, unspecified; E03.9 Hypothyroidism, unspecified; E11.65 Type 2 diabetes mellitus with hyperglycemia; Z95.0 Presence of cardiac pacemaker; Z20.822 Contact with and (suspected) exposure to COVID-19; I49.5 Sick sinus syndrome; I44.1 Atrioventricular block, second degree; N40.0 Benign prostatic hyperplasia without lower urinary tract symptoms; E11.42 Type 2 diabetes mellitus with diabetic polyneuropathy; I25.10 Atherosclerotic heart disease of native coronary artery without angina pectoris; E78.5 Hyperlipidemia, unspecified; F01.50 Vascular dementia, unspecified severity, without behavioral disturbance, psychotic disturbance, mood disturbance, and anxiety; F41.9 Anxiety disorder, unspecified; J44.9 Chronic obstructive pulmonary disease, unspecified; G89.29 Other chronic pain; I27.20 Pulmonary hypertension, unspecified; Z88.0 Allergy status to penicillin; F17.210 Nicotine dependence, cigarettes, uncomplicated; Z95.2 Presence of prosthetic heart valve; V89.2XXS Person injured in unspecified motor-vehicle accident, traffic, sequela
CPT/HCPCS: 36415; 70030-TC; 71045; 83605; 83735; 84100; 84443; 85025; 85730; 86706; 86803; 87040; 87340; 87806; 90937; 93005; 93307; A4663; A6209; G0378; J0692; J1815; J1956; J2185; J3370; J3490; J7050; J7060; Q9967